=== PATIENT | female | born 1995 | race Two or more races ===

== ENCOUNTER 2020-04-07 15:16 | Emergency (ER) | payer OTHER ==
[~2020-04-07] VITALS: Ht 154.9 cm; Wt 53.1 kg
[2020-04-07 15:30] VITALS: Ht 154.9 cm; Wt 53.1 kg
[2020-04-07 16:34] VITALS: BP 111/62
== END 2020-04-07 16:34 | disposition home or self-care (01) ==
LOC: ED 15:16
DX: S83.92XA Sprain of unspecified site of left knee, initial encounter (principal); S53.402A Unspecified sprain of left elbow, initial encounter; S20.212A Contusion of left front wall of thorax, initial encounter; F41.9 Anxiety disorder, unspecified; V19.9XXA Pedal cyclist (driver) (passenger) injured in unspecified traffic accident, initial encounter; Y93.I9 Activity, other involving external motion; Y92.413 State road as the place of occurrence of the external cause; Y99.8 Other external cause status
CPT/HCPCS: 90715